=== PATIENT | male | born 1960 | race African-American/Black ===

== ENCOUNTER 2018-08-29 12:04 | Emergency (ER) | payer MEDICARE, OTHER ==
[~2018-08-29] VITALS: Ht 177.8 cm; Wt 77.0 kg
[~2018-08-29 12:04] MED LIST: ACET80TA; ALBU2.5V13; TRAM50TA94
[2018-08-29] MEDS ORDERED: ONDANSETRON HCL 4MG/2ML INJ IV STA (13:24)
[2018-08-29] MEDS ORDERED: MORPHINE SULFATE 4 MG/ML CPJ (NOT FOR IM USE) IV STA (13:24)
[2018-08-29] MEDS ORDERED: ASPIRIN 81MG TABLET PO ONE (13:30)
[2018-08-29 13:38] LABS: EOSINOPHILS % 5.2 % (0.0-5.0); HEMATOCRIT. 36.9 % (42.0-52.0); HEMOGLOBIN. 12.3 g/dL (14.0-18.0); LYMPHOCYTES % 35.6 % (20.0-50.0); MEAN CORPUSCULAR HEMOGLOBIN 30.9 pg (28.0-32.0); MEAN CORPUSCULAR VOLUME 92.8 fL (80.0-94.0); MEAN PLATELET VOLUME 7.6 fl (7.4-10.4); MONOCYTES % 7.7 % (2.0-8.0); NEUTROPHILS % 50.5 % (40.0-76.0); PLATELET 298 x1000/uL (130-400); RED BLOOD CELL COUNT 3.98 mill/uL (4.7-6.1); RED CELL DISTRIBUTION WIDTH 12.9 % (11.6-14.6)
[2018-08-29 13:49] LABS: CHLORIDE 108 mEq/L (98-107)
[2018-08-29 13:53] LABS: PROTHROMBIN TIME 10.5 sec (9.6-11.0)
[2018-08-29 18:35] VITALS: BP 126/42
== END 2018-08-29 18:48 | disposition short-term general hospital (02) ==
LOC: ER 12:04 → CANBEDREQ 18:33 → ER 18:48
DX: R07.89 Other chest pain (principal); R06.02 Shortness of breath; R20.2 Paresthesia of skin; J45.909 Unspecified asthma, uncomplicated; Z87.39 Personal history of other diseases of the musculoskeletal system and connective tissue; Z79.899 Other long term (current) drug therapy
CPT/HCPCS: 36415; 71045; 80053; 83880; 84484; 85025; 85610; 93005; 99285; Z7610; J2270; J2405